=== PATIENT | male | born 1990 | race Caucasian/White ===

== ENCOUNTER 2023-11-27 16:24 | Inpatient (IN) ==
[2023-11-27 17:12] LABS: Basophils # (auto) 0.03 K/uL (0.00-0.20); Basophils % (auto) 0.6 %; Hemoglobin 14.5 g/dl (14.0-18.0); Immature Granulocytes # (auto) 0.02 K/uL (0.01-0.20); Immature Granulocytes % (auto) 0.4 %; Lymphocytes # (auto) 2.02 K/uL (1.20-3.40); Lymphocytes % (auto) 42.7 %; Mean Corpuscular Hgb Conc 34.5 g/dL (32.0-36.0); Mean Corpuscular Volume 89.7 fL (80.0-100.0); Mean Platelet Volume 8.4 fL (9.4-12.4); Monocytes # (auto) 0.36 K/uL (0.11-0.59); Monocytes % (auto) 7.6 %; Neutrophils % (auto) 48.7 %; Platelet Count 284 K/uL (130-400); RDW Coefficient of Variation 12.7 % (11.5-14.5); RDW Standard Deviation 41.9 fL (36.4-46.3); Red Blood Count 4.68 M/uL (4.70-6.10); White Blood Count 4.73 K/ul (4.8-10.8)
[2023-11-27 17:13] LABS: Appearance Urine Clear (Clear); Bilirubin Urine Negative (Negative); Blood Urine Negative (Negative); Color Urine Yellow; Glucose Urine UA Negative (Negative); Ketones Urine Negative (Negative); Leukocyte Esterase Urine Negative (Negative); Nitrite Urine Negative (Negative); Protein Urine Negative (Negative); Specific Gravity Urine 1.011 (1.000-1.030); Urobilinogen Urine Negative (Negative)
[2023-11-27 17:35] LABS: Acetaminophen < 3 ug/ml (10-30); Salicylate < 3.0 mg/dl (3.0-30)
[2023-11-27 17:37] LABS: Albumin Globulin Ratio 1.7 (0.9-2); Albumin Level 4.7 gm/dl (3.4-5.0); BUN Creatinine Ratio 17.4 (10-20); Bilirubin,Total 0.3 mg/dl (0.2-1.0); Calcium 9.5 mg/dl (8.6-10.3); Creatinine Clr Calc Pharmacy 152.3 ml/min; Est GFR (African American) 144.6 ml/min; Est GFR (Non-African American) 124.7 ml/min; Globulin 2.8 gm/dl (2.5-4.0); Potassium 3.7 mmol/L (3.5-5.1); Total Protein 7.5 gm/dl (6.0-8.3)
[2023-11-27 17:46] LABS: Thyroid Stimulating Hormone 2.398 uIu/ml (0.300-4.500)
[2023-11-27 17:53] LABS: Amphetamines+Metham, Urine Neg (Neg); Barbiturates, Urine Neg (Neg); Benzodiazepine, Urine Neg (Neg); Cocaine, Urine Neg (Neg); MDMA (Ecstacy), Urine Pos (Neg); Marijuana, Urine Neg (Neg); Methadone, Urine Neg (Neg); Opiate, Urine Neg (Neg); Phencyclidine, Urine Neg (Neg)
--- NOTE | 2023-11-27 18:51 | Emergency Department Note ---
Impression & Plan Suicidal behavior, Hearing voices ED Provider Note NAME: KATHRYN MEADOWS AGE: 33 SEX: M : 1990 ARRIVES VIA: Walk-In INFORMANT: Patient, ED PROVIDER(S): Myriam Etienne MD CHIEF COMPLAINT: Hearing voices, SI HPI: This is a 33-year-old male presenting for SI. Patient states that he has been at [facility] rehab for meth use. He notes that for the past 6 months he is not dealing with voices that are getting progressively worse. Before they were telling him what to do such as move out of his current apartment. Most recently been telling him to kill himself and "and already ". He states that this is very frustrating and that he is feeling increasingly concerned about the he is hearing voices. He notes that he does feel suicidal and thought about jumping off a bridge. He denies any HI. ROS: See above HPI for pertinent positives & negatives. A total of 10 systems reviewed and were otherwise negative. PHYSICAL EXAMINATION: General: resting comfortably in no acute distress Head: Normocephalic and atraumatic Eyes: Normal inspection, extraocular muscles intact Ear, nose, throat: Normal external exam Neck: Normal range of motion Respiratory: lungs clear to auscultation bilaterally Cardiovascular: Regular rate/rhythm, no murmur GI: soft, nontender, no guarding or rebound Extremities: nontender, moves all extremities Neuro: The patient awake and alert, appropriately conversive, no focal deficits, symmetric faces Skin: Warm, dry, and intact MEDICAL DECISION MAKING: This is a 33-year-old male presenting for SI/hearing voices. Patient is a current 201. -Patient screening blood work is reviewed at this time showing no significant abnormalities. -His UDS is positive for MDMA at this time however patient has been in rehab, this may be a false positive -Patient evaluated by 3 S. and accepted to their service. Differential diagnosis: Schizophrenia, methamphetamine use, bipolar ER treatment provided: See below Diagnostics interpreted by me: ECG: None Cardiac Monitoring: An order was placed for continuous cardiac monitoring. The monitor shows a rate of 74 with sinus rhythm. Laboratory studies: As stated above and show below. Imaging studies: See below. Past Med/Surg History Medical History No pertinent family history Depression Anxiety PTSD (post-traumatic stress disorder) Surgical History No pertinent past surgical history Social History Smoking Status: Current every day smoker Tobacco Type: Cigarettes Hx Substance Use: Yes Non-Prescribed Medications: Methamphetamines Preferred Language: Tunisian Communication Ability: Effective Assistant Finance Director Required: No Beliefs That Will Affect Care: None Feels Safe at Home: Yes Gender Identity: Male Assistive Devices: Denture - Upper and Denture - Lower Allergies Allergies Allergy/AdvReac Type Severity Reaction Status Date / Time No Known Allergies Allergy Unverified 11/27/23 23:28 Home Meds Home Medications Medication Instructions Recorded Confirmed bupropion HCl 150 mg 24 hr tablet, 150 mg PO BID 11/27/23 11/27/23 extended release melatonin 5 mg PO HS PRN Insomnia 11/27/23 11/27/23 risperidone 1 mg tablet 1 mg HS 11/27/23 11/27/23 multivitamin with minerals 1 tab PO DAILY 11/28/23 11/28/23 trazodone 50 mg tablet 50 mg PO HS PRN Insomnia 11/28/23 11/28/23 Results & Data (ED) Vital Signs Vital Signs - 24 hr 11/27/23 16:36 11/27/23 19:36 11/27/23 20:45 Temperature 36.5 C Temperature Source Temporal Artery Scan Pulse Rate 85 Pulse Rate [Finger] 74 Pulse Rhythm Regular Pulse Rhythm [Finger] Regular Respiratory Rate 20 16 Respiratory Effort / Characteristics Non-Labored Spontaneous Non-Labored Non-Labored Respiratory Depth Normal Normal Normal Blood Pressure 134/85 Blood Pressure [Left Arm] 105/69 Blood Pressure Mean 101 Blood Pressure Mean [Left Arm] 81 Pulse Oximetry 97 97 Oxygen Delivery Method Room Air Room Air Sepsis Recent Fever Within 48 Hours No Sepsis New/Unexplained Change in Mental Status No Sepsis Action Taken by Nursing No Action Required 11/27/23 22:00 Temperature Temperature Source Pulse Rate Pulse Rate [Finger] Pulse Rhythm Pulse Rhythm [Finger] Respiratory Rate Respiratory Effort / Characteristics Non-Labored Respiratory Depth Normal Blood Pressure Blood Pressure [Left Arm] Blood Pressure Mean Blood Pressure Mean [Left Arm] Pulse Oximetry Oxygen Delivery Method Sepsis Recent Fever Within 48 Hours Sepsis New/Unexplained Change in Mental Status Sepsis Action Taken by Nursing Laboratory Data 11/27/23 16:45 11/27/23 16:45 Lab Results 11/27/23 11/27/23 Range/Units 16:45 21:23 WBC 4.73 L (4.8-10.8) K/ul RBC 4.68 L (4.70-6.10) M/uL Hgb 14.5 (14.0-18.0) g/dl Hct 42.0 (42.0-52.0) % MCV 89.7 (80.0-100.0) fL MCH 31.0 (25.0-34.0) pg MCHC 34.5 (32.0-36.0) g/dL RDW Std Deviation 41.9 (36.4-46.3) fL RDW Coeff of Hannah 12.7 (11.5-14.5) % Plt Count 284 (130-400) K/uL MPV 8.4 L (9.4-12.4) fL Immature Gran % (Auto) 0.4 % Neut % (Auto) 48.7 % Lymph % (Auto) 42.7 % [place] % (Auto) 7.6 % Eos % (Auto) 0.0 % Baso % (Auto) 0.6 % Neut # (Auto) 2.30 (1.40-6.50) K/uL Lymph # (Auto) 2.02 (1.20-3.40) K/uL [place] # (Auto) 0.36 (0.11-0.59) K/uL Eos # (Auto) 0.00 (0.00-0.50) K/uL Baso # (Auto) 0.03 (0.00-0.20) K/uL Immature Gran # (Auto) 0.02 (0.01-0.20) K/uL Sodium 137 (136-145) mmol/L Potassium 3.7 (3.5-5.1) mmol/L Chloride 103 (98-107) mmol/L Carbon Dioxide 26 (21-32) mmol/L Anion Gap 8 (3-11) BUN 12 (6-23) mg/dl Creatinine 0.69 (0.6-1.4) mg/dl Est Cr Clr Drug Dosing 152.3 ml/min Est GFR ( Amer) 144.6 ml/min Est GFR (Non-Af Amer) 124.7 ml/min BUN/Creatinine Ratio 17.4 (10-20) Glucose 84 (70-99(Fasting)) mg/dl Calcium 9.5 (8.6-10.3) mg/dl Total Bilirubin 0.3 (0.2-1.0) mg/dl AST 17 (13-39) U/L ALT 24 (7-52) U/L Alkaline Phosphatase 57 (34-104) U/L Total Protein 7.5 (6.0-8.3) gm/dl Albumin 4.7 (3.4-5.0) gm/dl Globulin 2.8 (2.5-4.0) gm/dl Albumin/Globulin Ratio 1.7 (0.9-2) TSH 2.398 (0.300-4.500) uIu/ml Urine Color Yellow Urine Appearance Clear (Clear) Urine pH 6.0 (4.5-7.5) Ur Specific [place] 1.011 (1.000-1.030) Urine Protein Negative (Negative) Urine Glucose (UA) Negative (Negative) Urine Ketones Negative (Negative) Urine Blood Negative (Negative) Urine Nitrite Negative (Negative) Urine Bilirubin Negative (Negative) Urine Urobilinogen Negative (Negative) Ur Leukocyte Esterase Negative (Negative) Salicylates < 3.0 L (3.0-30) mg/dl Urine Opiates Screen Neg (Neg) Ur Methadone, Qual Neg (Neg) Acetaminophen < 3 L (10-30) ug/ml Urine Barbiturates Neg (Neg) Ur Phencyclidine (PCP) Neg (Neg) U Amphetamin/Meth Scrn Neg (Neg) MDMA (Ecstasy) Screen Pos H (Neg) U Benzodiazepines Scrn Neg (Neg) Ur Cocaine Metabolite Neg (Neg) U Marijuana (THC) Screen Neg (Neg) Ethyl Alcohol mg/dL < 10.0 (<10.0) mg/dl SARS-CoV-2, RNA, NAAT NEGATIVE (NEGATIVE) Administered Medications Discontinued Medications Hydroxyzine HCl (Hydroxyzine Hcl 25 Mg Tab) 50 mg PO NOW STA Stop: 11/27/23 20:27 Last Admin: 11/27/23 20:31 Dose: 50 mg Documented By: BORIS Risperidone (Risperidone 1 Mg Tablet) 1 mg PO QAM ONE Stop: 11/27/23 23:27 Last Admin: 11/27/23 23:49 Dose: 1 mg Documented By: RDS Discharge Plan Visit Data Chief Complaint: Mental Health Evaluation Stated Complaint: MHE ED Provider: Myriam Etienne Discharge Problem: Suicidal behavior, Hearing voices Patient Disposition: Admitted As Inpatient Discharge Instructions Interventions: ED Discharge Assessment Last Done: 11/27/23 23:13
[2023-11-27] MEDS: hydrOXYzine HCl 25 MG TAB PO STA (20:31)
[2023-11-27] MEDS ORDERED: ACETAMINOPHEN 325 MG TAB PO PRN (23:25)
[2023-11-27] MEDS ORDERED: BISMUTH SUBSALICYLATE LIQD 236 ML PO PRN (23:25)
[2023-11-27] MEDS ORDERED: MAGNESIUM HYDROXIDE SUSP 30 ML UDC PO PRN (23:25)
[2023-11-27] MEDS ORDERED: SODIUM CHLORIDE 0.65% NA SOLN 45 ML (OCEAN) PRN (23:25)
[2023-11-27] MEDS ORDERED: hydrOXYzine HCl 25 MG TAB PO PRN (23:25)
[2023-11-27] MEDS ORDERED: ALUMINUM/MAGNESIUM SUSP 30 ML UDC PO PRN (23:25)
[2023-11-27] MEDS: risperiDONE 1 MG TABLET PO ONE (23:49)
[2023-11-28] MEDS: NICOTINE 14 MG/24 HR PATCH TD SCH (08:32)
[2023-11-28] MEDS: risperiDONE 1 MG TABLET PO PRN (10:01)
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
[2023-11-28] MEDS ORDERED: BENZTROPINE MESYLATE 1 MG TAB PO PRN (15:57)
[2023-11-28] MEDS ORDERED: risperiDONE 1 MG TABLET PO PRN (15:58)
[2023-11-28] MEDS: hydrOXYzine HCl 25 MG TAB PO PRN ×2 (18:55→20:55)
[2023-11-28] MEDS: risperiDONE 2 MG TABLET PO SCH (20:55)
[2023-11-28] MEDS ORDERED: risperiDONE 1 MG TABLET PO SCH (22:00)
[2023-11-29] MEDS: risperiDONE 1 MG TABLET PO SCH (09:06)
--- NOTE | 2023-11-29 11:38 | Psychiatric Progress Note ---
Date of Service November 29, 2023 Impression / Recommendations Impression Emerson Huston is a 33 y/o white male h/o Methamphetamine induced psychosis who presents from [facility] inpatient rehab on a 201 voluntary commitment (admitted 11/27/23 22:50) with c/o derogatory and command auditory hallucinations in the context of recent methamphetamine dependence. Low suspicion for a primary psychotic disorder given timeline and past improvement in psychosis with extended sobriety. 11/29/23: Reduction of hallucination frequency and intensity and patient endorsed improvement in related anxiety. He is more future oriented and denies suicidal ideation. We discussed relapse prevention strategies today and recounted his past relapse episode to identify triggers. He presents motivation for continued abstinence and discussed potential pitfalls of relapse. No EPS symptoms identified and medications are well tolerated. 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 Start Trazodone 50mg HS. 11/28/23: D/c Wellbutrin. Increase Risperidone to 1mg QAM, 2mg HS. Inc Vistaril PRN to 50mg Q4hr PRN. Inventory Assets Strengths: fair insight, self directed Needs: improving coping, sobriety Suicide Risk Level Suicide Risk Level: Moderate (q15 min suicide checks) Risk Factors Assessment Male: Yes : Yes Do You Have Access To A Gun?: No (n/a) Health Problems: No Mental Health Diagnoses: Yes Substance Use Disorders: Yes Previous Attempt: No Family History of Suicide: No Previous Psychiatric Hospitalization: Yes Hopelessness: No Protective Factors Assessment : No Responsible for Young Children: No Employed: No Stable Relationships: Yes Supportive Family: No Good Rapport with Provider: Yes Interval History Identifying Information Emerson Huston is a 33 y/o white male h/o Methamphetamine induced psychosis who presents from [facility] inpatient rehab on a 201 voluntary commitment (admitted 11/27/23 22:50) with c/o derogatory and command auditory hallucinations in the context of recent methamphetamine dependence. Chief Complaint "slept well and voices are better". Review of Systems Sleep Information Total Hours of Sleep: 8.25 Sleep Comments: Admitted overnight Meal Information Percent Meal Consumed - Breakfast: 100 Percent Meal Consumed - Lunch: 100 Percent Meal Consumed - Dinner: 100 Subjective Subjective Patient was seen & assessed and interval progress reviewed with treatment team nursing and social work Overnight no acute events. Vitals stable. Pt reports sleeping well. Denies med s/e. Endorses decrease in voices frequency, intensity, and related distress. Looking forward to returning to rehab and getting back to his apartment. Eating well. Discussed past relapse and reports he left rehab was in his apartment alone, felt anger from the past, took some money and went across town to get drugs. Physical Exam Mental Examination Appearance: Disheveled Eye Contact: Direct Eye Contact Motor Behavior: Unremarkable Speech: Circumstantial (slightly) Mood: Anxious Affect: Constricted Thought Process: Goal Oriented and Logical Thought Content: Linear and Logical Hallucinations: Auditory (command and derogatory) Insight: Fair Judgement: Fair Vital Signs (Past 24 Hours) Last Vital Signs Temp 36.4 C L 11/29/23 06:40 Pulse 98 H 11/29/23 06:41 Resp 16 11/29/23 06:40 BP 106/68 11/29/23 06:41 Pulse Ox 98 11/28/23 00:41 O2 Del Method Room Air 11/28/23 00:41 A physical exam was performed in the ER prior to admission to the unit. I accept that physical as correct/medical clearance for the inpatient physical exam. Results & Data ([facility]) Current Inpatient Medications Current Inpatient Medications: Current Inpatient Medications Acetaminophen (Acetaminophen 325 Mg Tab) 650 mg PO Q4H PRN PRN Reason: Headache or Minor Fever Stop: 12/27/23 23:24 Al Hydrox/Mg Hydrox/Simethicone (Aluminum/Magnesium Susp 30 Ml Udc) 30 ml PO Q4H PRN PRN Reason: GI Upset Stop: 12/27/23 23:24 Benztropine Mesylate (Benztropine Mesylate 1 Mg Tab) 1 mg PO Q4H PRN PRN Reason: EPS, dystonia Stop: 12/28/23 15:56 Bismuth Subsalicylate (Bismuth Subsalicylate Liqd 236 Ml) 15 ml PO PRN PRN PRN Reason: Loose Stool Stop: 12/27/23 23:24 Hydroxyzine HCl (Hydroxyzine Hcl 25 Mg Tab) 50 mg PO HSZ PRN PRN Reason: Insomnia Stop: 12/27/23 23:24 Last Admin: 11/28/23 20:55 Dose: 50 mg Hydroxyzine HCl (Hydroxyzine Hcl 25 Mg Tab) 50 mg PO Q4H PRN PRN Reason: Anxiety Stop: 12/27/23 23:24 Last Admin: 11/28/23 18:55 Dose: 50 mg Magnesium Hydroxide (Magnesium Hydroxide Susp 30 Ml Udc) 30 ml PO DAILY PRN PRN Reason: Constipation Stop: 12/27/23 23:24 Miscellaneous (Remove Nicoderm Patch) 1 each N/A DAILY@0859 [facility] Stop: 12/28/23 08:58 Last Admin: 11/28/23 20:58 Dose: 1 each Nicotine (Nicotine 14 Mg/24 Hr Patch) [facility] [place]: 12/28/23 08:59 Last Admin: 11/29/23 09:06 Dose: 1 patch Risperidone (Risperidone 2 Mg Tablet) 2 mg PO [facility] Stop: 12/28/23 21:59 Last Admin: 11/28/23 20:55 Dose: 2 mg Risperidone (Risperidone 1 Mg Tablet) 1 mg PO QAM [facility] Stop: 12/29/23 08:59 Last Admin: 11/29/23 09:06 Dose: 1 mg Risperidone (Risperidone 1 Mg Tablet) 1 mg PO DAILY PRN PRN Reason: Psychosis/Agitation Stop: 12/27/23 23:43 Sodium Chloride (Sodium Chloride 0.65% Na Soln 45 Ml ([place])) 1 - 2 sprays NA PRN PRN PRN Reason: Nasal Dryness/Congestion Stop: 12/27/23 23:24 Trazodone HCl (Trazodone Hcl 50 Mg Tab) 50 mg PO [facility] Stop: 12/29/23 21:59 Mental Health & Subst Abuse Tx Psychiatrist Time of Appointment with Psychiatrist: n/a Therapist Name of Therapist: Katerin Time of Therapist Appointment: n/a Keyboard Teacher Name of Keyboard Teacher: n/aa Time of Appointment with Keyboard Teacher: n/a Post Discharge Appointments Primary Care Physician Name Of Family Doctor/PCP: n/a Time of Appointment with PCP: n/a
[2023-11-29] MEDS: traZODone HCL 50 MG TAB PO SCH (21:01)
--- NOTE | 2023-11-30 10:32 | Psychiatric Progress Note ---
Date of Service November 30, 2023 Impression / Recommendations Impression Emerson Huston is a 33 y/o white male h/o Methamphetamine induced psychosis who presents from [facility] inpatient rehab on a 201 voluntary commitment (admitted 11/27/23 22:50) with c/o derogatory and command auditory hallucinations in the context of recent methamphetamine dependence. Low suspicion for a primary psychotic disorder given timeline and past improvement in psychosis with extended sobriety. 11/29/23: Reduction of hallucination intensity and patient endorsed improvement in related anxiety. Per pt, voices constant through the day. Sleep improved with Trazodone. Patient counseled on relapse prevention and successful planning to maintain sobriety. No EPS symptoms identified on exam and tolerating Risperidone well. 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 11/29/23: Continue Risperidone 1mg QAM, 2mg HS. Start Trazodone 50mg HS. 11/28/23: D/c Wellbutrin. Increase Risperidone to 1mg QAM, 2mg HS. Inc Vistaril PRN to 50mg Q4hr PRN. Inventory Assets Strengths: fair insight, self directed Needs: improving coping, sobriety Suicide Risk Level Suicide Risk Level: Moderate (q15 min suicide checks) Risk Factors Assessment Male: Yes : Yes Do You Have Access To A Gun?: No (n/a) Health Problems: No Mental Health Diagnoses: Yes Substance Use Disorders: Yes Previous Attempt: No Family History of Suicide: No Previous Psychiatric Hospitalization: Yes Hopelessness: No Protective Factors Assessment : No Responsible for Young Children: No Employed: No Stable Relationships: Yes Supportive Family: No Good Rapport with Provider: Yes Interval History Identifying Information Emerson Huston is a 33 y/o white male h/o Methamphetamine induced psychosis who presents from [facility] inpatient rehab on a 201 voluntary commitment (admitted 11/27/23 22:50) with c/o derogatory and command auditory hallucinations in the context of recent methamphetamine dependence. Chief Complaint "voices are quieter". Review of Systems Sleep Information Total Hours of Sleep: 6.5 Sleep Comments: Admitted overnight Meal Information Percent Meal Consumed - Breakfast: 100 Percent Meal Consumed - Lunch: 100 Percent Meal Consumed - Dinner: 100 Subjective Subjective Patient was seen & assessed and interval progress reviewed with treatment team nursing and social work Overnight no acute events. Vitals stable. Pt reports sleeping well. Reports voices still present however "less loud". Voices consistent through the day and continue to be derogatory and command in nature. Denies rigidity/muscle stiffness. Reports using coping skills to distract from voices. Denies SI, HI. Reflected on past relapse and what euceda factors can be changed in the future. Physical Exam Mental Examination Appearance: Disheveled Eye Contact: Direct Eye Contact Motor Behavior: Unremarkable Speech: Normal Mood: Calm Affect: Constricted Thought Process: Goal Oriented and Logical Thought Content: Linear and Logical Hallucinations: Auditory (command and derogatory) Insight: Fair Judgement: Fair Vital Signs (Past 24 Hours) Last Vital Signs Temp 36.8 C 11/30/23 06:36 Pulse 103 H 11/30/23 06:36 Resp 16 11/30/23 06:36 BP 119/73 11/30/23 06:36 Pulse Ox 98 11/28/23 00:41 O2 Del Method Room Air 11/28/23 00:41 A physical exam was performed in the ER prior to admission to the unit. I accept that physical as correct/medical clearance for the inpatient physical exam. Results & Data ([facility]) Current Inpatient Medications Current Inpatient Medications: Current Inpatient Medications Acetaminophen (Acetaminophen 325 Mg Tab) 650 mg PO Q4H PRN PRN Reason: Headache or Minor Fever Stop: 12/27/23 23:24 Al Hydrox/Mg Hydrox/Simethicone (Aluminum/Magnesium Susp 30 Ml Udc) 30 ml PO Q4H PRN PRN Reason: GI Upset Stop: 12/27/23 23:24 Benztropine Mesylate (Benztropine Mesylate 1 Mg Tab) 1 mg PO Q4H PRN PRN Reason: EPS, dystonia Stop: 12/28/23 15:56 Bismuth Subsalicylate (Bismuth Subsalicylate Liqd 236 Ml) 15 ml PO PRN PRN PRN Reason: Loose Stool Stop: 12/27/23 23:24 Hydroxyzine HCl (Hydroxyzine Hcl 25 Mg Tab) 50 mg PO HSZ PRN PRN Reason: Insomnia Stop: 12/27/23 23:24 Last Admin: 11/28/23 20:55 Dose: 50 mg Hydroxyzine HCl (Hydroxyzine Hcl 25 Mg Tab) 50 mg PO Q4H PRN PRN Reason: Anxiety Stop: 12/27/23 23:24 Last Admin: 11/28/23 18:55 Dose: 50 mg Magnesium Hydroxide (Magnesium Hydroxide Susp 30 Ml Udc) 30 ml PO DAILY PRN PRN Reason: Constipation Stop: 12/27/23 23:24 Miscellaneous (Remove Nicoderm Patch) 1 each N/A DAILY@0859 [facility] Stop: 12/28/23 08:58 Last Admin: 11/30/23 09:01 Dose: 1 each Nicotine (Nicotine 14 Mg/24 Hr Patch) [address] [facility] [place] Stop[facility] 12/28/23 08:59 Last Admin: 11/30/23 09:05 Dose: 1 patch Risperidone (Risperidone 2 Mg Tablet) 2 mg PO [facility] Stop: 12/28/23 21:59 Last Admin: 11/29/23 21:01 Dose: 2 mg Risperidone (Risperidone 1 Mg Tablet) 1 mg PO QAM [facility] Stop: 12/29/23 08:59 Last Admin: 11/30/23 09:01 Dose: 1 mg Risperidone (Risperidone 1 Mg Tablet) 1 mg PO DAILY PRN PRN Reason: Psychosis/Agitation Stop: 12/27/23 23:43 Sodium Chloride (Sodium Chloride 0.65% Na Soln 45 Ml ([place])) 1 - 2 sprays NA PRN PRN PRN Reason: Nasal Dryness/Congestion Stop: 12/27/23 23:24 Trazodone HCl (Trazodone Hcl 50 Mg Tab) 50 mg PO [facility] Stop: 12/29/23 21:59 Last Admin: 11/29/23 21:01 Dose: 50 mg Mental Health & Subst Abuse Tx Psychiatrist Time of Appointment with Psychiatrist: n/a Therapist Name of Therapist: Katerin Time of Therapist Appointment: n/a Rubber Goods Finisher Name of Rubber Goods Finisher: n/aa Time of Appointment with Rubber Goods Finisher: n/a Post Discharge Appointments Primary Care Physician Name Of Family Doctor/PCP: n/a Time of Appointment with PCP: n/a
[2023-12-01 09:29] LABS: Estimated Average Glucose 94 mg/dl; Hemoglobin A1C 4.9 % (4.5-5.6)
[2023-12-01 09:42] LABS: Chol HDL Ratio 3.7 (0-5)
--- NOTE | 2023-12-01 10:42 | Psychiatric Progress Note ---
Date of Service December 01, 2023 Impression / Recommendations Impression Emerson Huston is a 33 y/o white male h/o Methamphetamine induced psychosis who presents from [facility] inpatient rehab on a 201 voluntary commitment (admitted 11/27/23 22:50) with c/o derogatory and command auditory hallucinations in the context of recent methamphetamine dependence. Low suspicion for a primary psychotic disorder given timeline and past improvement in psychosis with extended sobriety. 11/29/23: Reduction of hallucination intensity and patient endorsed improvement in related anxiety. Per pt, voices constant through the day. Sleep improved with Trazodone. Patient counseled on relapse prevention and successful planning to maintain sobriety. No EPS symptoms identified on exam and tolerating Risperidone well. Hemoglobin A1c and lipid panel reviewed and cholesterol slightly high otherwise within normal limits. 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 11/30/23: Continue Risperidone 1mg QAM, 2mg HS; Trazodone 50mg HS. 11/29/23: Continue Risperidone 1mg QAM, 2mg HS. Start Trazodone 50mg HS. 11/28/23: D/c Wellbutrin. Increase Risperidone to 1mg QAM, 2mg HS. Inc Vistaril PRN to 50mg Q4hr PRN. Inventory Assets Strengths: fair insight, self directed Needs: improving coping, sobriety Suicide Risk Level Suicide Risk Level: Moderate (q15 min suicide checks) Risk Factors Assessment Male: Yes : Yes Do You Have Access To A Gun?: No (n/a) Health Problems: No Mental Health Diagnoses: Yes Substance Use Disorders: Yes Previous Attempt: No Family History of Suicide: No Previous Psychiatric Hospitalization: Yes Hopelessness: No Protective Factors Assessment : No Responsible for Young Children: No Employed: No Stable Relationships: Yes Supportive Family: No Good Rapport with Provider: Yes Interval History Identifying Information Emerson Huston is a 33 y/o white male h/o Methamphetamine induced psychosis who presents from [facility] inpatient rehab on a 201 voluntary commitment (admitted 11/27/23 22:50) with c/o derogatory and command auditory hallucinations in the context of recent methamphetamine dependence. Chief Complaint "voices". Review of Systems Sleep Information Total Hours of Sleep: 7.30 Sleep Comments: Recieved scheduled Risperdal and Tazadone Meal Information Percent Meal Consumed - Breakfast: 100 Percent Meal Consumed - Lunch: 100 Percent Meal Consumed - Dinner: 100 Subjective Subjective Patient was seen & assessed and interval progress reviewed with treatment team nursing and social work Overnight no acute events. Patient slept well. Patient reports continued to have distressing voices that are calling him names and tell him to do things. He reports they are quieter now than they were prior to admission. He reports being able to deal with the voices with coping skills and distractions. He is unclear about why Wellbutrin was previously started possibly for smoking cessation and he has not identified any improvement or worsening of his symptoms on Wellbutrin. He denies SI or HI or visual hallucinations. He is future oriented thinking about discharge back to his rehab and eventually his apartment. Physical Exam Mental Examination Appearance: Disheveled Eye Contact: Direct Eye Contact Motor Behavior: Unremarkable Speech: Normal Mood: Calm Affect: Constricted Thought Process: Goal Oriented and Logical Thought Content: Linear and Logical Hallucinations: Auditory (command and derogatory) Insight: Fair Judgement: Fair Vital Signs (Past 24 Hours) Last Vital Signs Temp 36.6 C 12/01/23 06:48 Pulse 105 H 12/01/23 06:48 Resp 16 12/01/23 06:48 BP 107/66 12/01/23 06:48 Pulse Ox 98 11/28/23 00:41 O2 Del Method Room Air 11/28/23 00:41 A physical exam was performed in the ER prior to admission to the unit. I accept that physical as correct/medical clearance for the inpatient physical exam. Results & Data ([facility]) Laboratory Results Laboratory Results - last 24 hr 12/01/23 08:38 Estimat Average Glucose 94 Hemoglobin A1c 4.9 Triglycerides 108 Cholesterol 210 H LDL Cholesterol, Calc 131 VLDL Cholesterol, Calc 22 HDL Cholesterol 57 Cholesterol/HDL Ratio 3.7 Current Inpatient Medications Current Inpatient Medications: Current Inpatient Medications Acetaminophen (Acetaminophen 325 Mg Tab) 650 mg PO Q4H PRN PRN Reason: Headache or Minor Fever Stop: 12/27/23 23:24 Al Hydrox/Mg Hydrox/Simethicone (Aluminum/Magnesium Susp 30 Ml Udc) 30 ml PO Q4H PRN PRN Reason: GI Upset Stop: 12/27/23 23:24 Benztropine Mesylate (Benztropine Mesylate 1 Mg Tab) 1 mg PO Q4H PRN PRN Reason: EPS, dystonia Stop: 12/28/23 15:56 Bismuth Subsalicylate (Bismuth Subsalicylate Liqd 236 Ml) 15 ml PO PRN PRN PRN Reason: Loose Stool Stop: 12/27/23 23:24 Hydroxyzine HCl (Hydroxyzine Hcl 25 Mg Tab) 50 mg PO HSZ PRN PRN Reason: Insomnia Stop: 12/27/23 23:24 Last Admin: 11/28/23 20:55 Dose: 50 mg Hydroxyzine HCl (Hydroxyzine Hcl 25 Mg Tab) 50 mg PO Q4H PRN PRN Reason: Anxiety Stop: 12/27/23 23:24 Last Admin: 11/28/23 18:55 Dose: 50 mg Magnesium Hydroxide (Magnesium Hydroxide Susp 30 Ml Udc) 30 ml PO DAILY PRN PRN Reason: Constipation Stop: 12/27/23 23:24 Miscellaneous (Remove Nicoderm Patch) 1 each N/A DAILY@0859 [facility] Stop: 12/28/23 08:58 Last Admin: 12/01/23 07:47 Dose: 1 each Nicotine (Nicotine 14 Mg/24 Hr Patch) 1 patch TD QAM [facility] Stop: 12/28/23 08:59 Last Admin: 12/01/23 07:47 Dose: 1 patch Risperidone (Risperidone 2 Mg Tablet) 2 mg PO HS [facility] Stop: 12/28/23 21:59 Last Admin: 11/30/23 21:33 Dose: 2 mg Risperidone (Risperidone 1 Mg Tablet) 1 mg PO QAM [facility] Stop: 12/29/23 08:59 Last Admin: 12/01/23 07:46 Dose: 1 mg Risperidone (Risperidone 1 Mg Tablet) 1 mg PO DAILY PRN PRN Reason: Psychosis/Agitation Stop: 12/27/23 23:43 Sodium Chloride (Sodium Chloride 0.65% Na Soln 45 Ml ([place])) 1 - 2 sprays NA PRN PRN PRN Reason: Nasal Dryness/Congestion Stop: 12/27/23 23:24 Trazodone HCl (Trazodone Hcl 50 Mg Tab) 50 mg PO HS [facility] Stop: 12/29/23 21:59 Last Admin: 11/30/23 21:33 Dose: 50 mg Mental Health & Subst Abuse Tx Psychiatrist Time of Appointment with Psychiatrist: n/a Therapist Name of Therapist: Katerin Time of Therapist Appointment: n/a Filer Repairer Name of Filer Repairer: n/aa Time of Appointment with Filer Repairer: n/a Post Discharge Appointments Primary Care Physician Name Of Family Doctor/PCP: n/a Time of Appointment with PCP: n/a
[2023-12-02 01:42] LABS: MDA negative; MDEA negative; MDMA (Ecstasy) Urine, Confirm negative
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
== END 2023-12-02 12:05 | disposition alcohol treatment (31) | DRG 897 ==
LOC: ED 16:24 → 3S 22:50